=== PATIENT | female | born 1960 | race American Indian/Alaskan Native ===

== ENCOUNTER 2018-01-05 12:55 | Outpatient (CLI) | payer MEDICAID ==
--- NOTE | 2018-01-06 13:25 | Mammography Report ---
BILATERAL DIGITAL SCREENING MAMMOGRAM with CAD: 01/05/18 CLINICAL: Routine screening. COMPARISON:None available. However, a prior mammogram was apparently done at [facility]. FINDINGS: The breasts are extremely dense, which limits the sensitivity of mammography.Bilateral parenchymal asymmetries require comparison with the prior mammogram or additional imaging. IMPRESSION: Bilateral asymmetries requiring further evaluation. BI-RADS CATEGORY: 0 -- Additional Evaluation Required RECOMMENDATION: Comparison with a previous mammogram. We will attempt to obtain a prior mammogram for comparison. If we do not obtain a prior mammogram within 30 days, a revised report will be issued recommending a recall for additional imaging. Please be advised that the patient should not schedule an appointment for return until adequate time (at least 2 weeks) has passed for us to obtain the prior mammogram. ACR BI-RADS MAMMOGRAPHIC CODES: 0 = Needs additional imaging evaluation; 1 = Negative; 2 = Benign; 3 = Probably benign; 4 = Suspicious; 5 = Malignant; 6 = Known biopsy-proven malignancy COMMENT: 1. Dense breast tissue, i.e., adenosis, fibrocystic changes, etc., may obscure an underlying neoplasm. 2. Approximately 10% of cancers are not detected with mammography. 3. A negative mammography report should not delay biopsy if a clinically suspicious mass is present. COMMENT: Patient follow-up letters are generated via our [employer] application.
== END 2018-01-05 12:56 | disposition home or self-care (01) ==
LOC: MAMMO 12:55
PROVIDERS: ATTEND Obstetrics & Gynecology
DX: Z12.31 Encounter for screening mammogram for malignant neoplasm of breast (principal)
CPT/HCPCS: 77067

== ENCOUNTER 2019-07-15 12:34 | Outpatient (CLI) | payer MEDICAID ==
--- NOTE | 2019-07-15 14:51 | Mammography Report ---
DIGITAL SCREENING MAMMOGRAM WITH CAD, 07/15/2019 INDICATION: Routine screening mammography. TECHNIQUE: Digital bilateral 2D mammography was obtained in the craniocaudal and mediolateral obliq ue projections. This examination was interpreted with the benefit of Computer-Aided Detection analysi s. COMPARISON: 01/05/2018 FINDINGS: Breast Density: The breasts are heterogeneously dense, which may obscure small masses. There is no evidence of dominant mass, suspicious calcifications or architectural distortion in eithe r breast. IMPRESSION: No mammographic evidence of malignancy. Follow up recommendation: Routine yearly BI-RADS Category 1: Negative. A "normal" or negative report should not discourage follow up or biopsy of a clinically significant f inding. A written summary of these findings will be mailed to the patient. The patient will be entered into a mammography reporting system which will generate a reminder letter for the patient's next appointmen t at the appropriate interval. The [employer] recommends yearly mammograms starting at age 40 and continuing as l sarah as a woman is in good health. Breast MRI is recommended for women with an approximate 20-25% or greater lifetime risk of breast cancer, including women with a strong family history of breast or ova tristan cancer or who have been treated for Hodgkin's disease. Signer Name: Addy Huggins MD Signed: 07/15/2019 2:47 PM Workstation Name: [id number]
== END 2019-07-15 12:35 | disposition home or self-care (01) ==
LOC: MAMMO 12:34
PROVIDERS: ATTEND Obstetrics & Gynecology
DX: Z12.31 Encounter for screening mammogram for malignant neoplasm of breast (principal)
CPT/HCPCS: 77067

== ENCOUNTER 2021-05-14 13:09 | Outpatient (CLI) | payer MEDICAID ==
--- NOTE | 2021-05-14 14:23 | Mammography Report ---
DIGITAL SCREENING MAMMOGRAM WITH CAD, 05/14/2021 CLINICAL INFORMATION / INDICATION: Routine screening mammography. SCREENING MAMMOGRAM TECHNIQUE: Digital bilateral 2D mammography was obtained in the craniocaudal and mediolateral obliqu e projections. This examination was interpreted with the benefit of Computer-Aided Detection analysis . COMPARISON: 10/10/2010 through 07/15/2019. FINDINGS: Breast Density: The breasts are extremely dense, which lowers the sensitivity of mammography. No dominant mass, suspicious calcifications, or architectural distortion in either breast. IMPRESSION: No mammographic evidence of malignancy. Follow up recommendation: Routine yearly BI-RADS Category 1: NEGATIVE A "normal" or negative report should not discourage follow up or biopsy of a clinically significant f inding. A written summary of these findings will be mailed to the patient. The patient will be entered into a mammography reporting system which will generate a reminder letter for the patient's next appointmen t at the appropriate interval. The [employer] recommends yearly mammograms starting at age 40 and continuing as l sarah as a woman is in good health. Breast MRI is recommended for women with an approximate 20-25% or greater lifetime risk of breast cancer, including women with a strong family history of breast or ova tristan cancer or who have been treated for Hodgkin's disease. Signer Name: River Francois MD Signed: 05/14/2021 2:19 PM Workstation Name: [id number]
== END 2021-05-14 13:10 | disposition home or self-care (01) ==
LOC: MAMMO 13:09
PROVIDERS: ATTEND Obstetrics & Gynecology
DX: Z12.31 Encounter for screening mammogram for malignant neoplasm of breast (principal)
CPT/HCPCS: 77067